=== PATIENT | female | born 1950 | race Caucasian/White ===

== ENCOUNTER 2017-04-26 23:03 | Observation (INO) | payer MEDICAID, OTHER ==
[~2017-04-26] VITALS: Ht 149.9 cm; Wt 62.1 kg
[2017-04-27] MEDS ORDERED: ONDANSETRON HCL 4MG/2ML VIAL IV ONE (00:30)
[2017-04-27] MEDS ORDERED: PANTOPRAZOLE SODIUM 40 MG/VIAL IV ONE (00:30)
[2017-04-27] MEDS ORDERED: FAMOTIDINE 20MG/2ML VIAL IV ONE (00:30)
[2017-04-27 00:55] LABS: BASOPHILS % 0.3 % (0.0-2.0); EOSINOPHILS % 0.3 % (0.0-5.0); HEMATOCRIT. 31.4 % (36.0-48.0); HEMOGLOBIN. 10.4 g/dL (12.0-16.0); LYMPHOCYTES % 18.3 % (20.0-50.0); MEAN CORPUSCULAR HEMOGLOBIN 28.4 pg (28.0-32.0); MEAN CORPUSCULAR VOLUME 85.5 fL (81.0-99.0); MEAN PLATELET VOLUME 9.2 fl (7.4-10.4); MONOCYTES % 5.2 % (2.0-8.0); NEUTROPHILS % 75.9 % (40.0-76.0); PLATELET 235 x1000/uL (130-400); RED BLOOD CELL COUNT 3.67 mill/uL (4.2-5.4)
[2017-04-27 00:58] LABS: CHLORIDE 108 mEq/L (98-107)
[2017-04-27 01:03] LABS: INR 1.1; PARTIAL THROMBOPLASTIN TIME 23.8 sec (24.0-34.0); PROTHROMBIN TIME 11.1 sec
[2017-04-27 01:07] LABS: CARBON DIOXIDE 28 mEq/L (21-32)
[2017-04-27 02:57] LABS: CLARITY URINE CLEAR (CLEAR); COLOR URINE YELLOW (YELLOW); GLUCOSE URINE NEGATIVE (NEGATIVE); KETONES URINE NEGATIVE (NEGATIVE); LEUKOCYTE ESTERASE URINE 1+ (NEGATIVE); NITRITE URINE NEGATIVE (NEGATIVE); OCCULT BLOOD URINE 2+ (NEGATIVE); PH URINE 7.5 (4.5-8.0); PROTEIN URINE NEGATIVE (NEGATIVE); SPECIFIC GRAVITY URINE 1.027 (1.005-1.030); UROBILINOGEN URINE 0.2 E.U./dL (0.2-1.0)
[2017-04-27] MEDS ORDERED: SODIUM CHLORIDE 0.9% 1,000 ML IV ONE (05:00)
[2017-04-27 09:00] VITALS: BP 89/55
[2017-04-27 09:05] VITALS: BP 94/50
[2017-04-27 09:30] VITALS: BP 103/69
[2017-04-27] MEDS ORDERED: CALC-36 PO (09:42)
[2017-04-27] MEDS ORDERED: ESCI10TA54 PO (09:42)
[2017-04-27] MEDS ORDERED: ANAS1TAB7 PO (09:42)
[2017-04-27] MEDS: DEXT 5%/0.45% NACL 500 ML IV SCH ×2 (10:49→17:16)
[2017-04-27 12:00] VITALS: BP 99/50
[2017-04-27 12:22] LABS: BASOPHILS % 1.1 % (0.0-2.0); EOSINOPHILS % 0.7 % (0.0-5.0); HEMATOCRIT. 25.9 % (36.0-48.0); HEMOGLOBIN. 8.5 g/dL (12.0-16.0); LYMPHOCYTES % 41.2 % (20.0-50.0); MEAN CORPUSCULAR HEMOGLOBIN 28.2 pg (28.0-32.0); MEAN CORPUSCULAR VOLUME 85.8 fL (81.0-99.0); MONOCYTES % 6.6 % (2.0-8.0); NEUTROPHILS % 50.4 % (40.0-76.0); PLATELET 210 x1000/uL (130-400); RED BLOOD CELL COUNT 3.02 mill/uL (4.2-5.4); RED CELL DISTRIBUTION WIDTH 14.1 % (11.6-14.6)
[2017-04-27] MEDS ORDERED: ONDANSETRON HCL 4MG/2ML VIAL IV PRN (13:30)
[2017-04-27] MEDS ORDERED: IPRATROPIUM/ALBUTEROL 0.5-3(2.5)MG/3ML NEB INH PRN (13:30)
[2017-04-27] MEDS ORDERED: ACETAMINOPHEN 325MG TABLET PO PRN (13:30)
[2017-04-27] MEDS ORDERED: CLONIDINE 0.1MG TABLET PO PRN (13:30)
[2017-04-27] MEDS ORDERED: SODIUM CHLORIDE 0.9% 10ML VIAL ONE (13:45)
[2017-04-27 14:01] LABS: CARBON DIOXIDE 27 mEq/L (21-32); CHLORIDE 110 mEq/L (98-107)
[2017-04-27] MEDS ORDERED: PANTOPRAZOLE SODIUM 40 MG/VIAL IV SCH (15:15)
[2017-04-27 16:00] VITALS: BP 95/46
[2017-04-27 17:05] LABS: BASOPHILS % 0.3 % (0.0-2.0); EOSINOPHILS % 0.8 % (0.0-5.0); HEMATOCRIT. 25.6 % (36.0-48.0); HEMOGLOBIN. 8.6 g/dL (12.0-16.0); LYMPHOCYTES % 43.4 % (20.0-50.0); MEAN CORPUSCULAR HEMOGLOBIN 28.8 pg (28.0-32.0); MEAN PLATELET VOLUME 8.9 fl (7.4-10.4); MONOCYTES % 6.8 % (2.0-8.0); NEUTROPHILS % 48.7 % (40.0-76.0); PLATELET 201 x1000/uL (130-400); RED BLOOD CELL COUNT 2.98 mill/uL (4.2-5.4); RED CELL DISTRIBUTION WIDTH 14.3 % (11.6-14.6)
[2017-04-27 20:00] VITALS: BP 88/41
[2017-04-27] MEDS: PANTOPRAZOLE SODIUM 40 MG/VIAL IV SCH (22:12)
[2017-04-28] VITALS (10 sets, daily range): BP systolic 88–121; BP diastolic 41–55
[2017-04-28] MEDS: DEXT 5%/0.45% NACL 500 ML IV SCH ×2 (01:09→09:58)
[2017-04-28 07:36] LABS: BASOPHILS % 0.7 % (0.0-2.0); EOSINOPHILS % 1.6 % (0.0-5.0); HEMOGLOBIN. 7.7 g/dL (12.0-16.0); MEAN CORPUSCULAR HEMOGLOBIN 28.8 pg (28.0-32.0); MEAN CORPUSCULAR VOLUME 86.1 fL (81.0-99.0); MEAN PLATELET VOLUME 9.2 fl (7.4-10.4); NEUTROPHILS % 47.7 % (40.0-76.0); PLATELET 173 x1000/uL (130-400); RED BLOOD CELL COUNT 2.67 mill/uL (4.2-5.4); RED CELL DISTRIBUTION WIDTH 14.3 % (11.6-14.6)
[2017-04-28 07:40] LABS: T4 FREE 1.02 ng/dL (0.76-1.46)
[2017-04-28 07:47] LABS: INR 1.1; PARTIAL THROMBOPLASTIN TIME 24.4 sec (24.0-34.0); PROTHROMBIN TIME 11.5 sec
[2017-04-28] MEDS: PANTOPRAZOLE SODIUM 40 MG/VIAL IV SCH ×2 (09:58→22:00)
[2017-04-28] MEDS ORDERED: FENTANYL CITRATE/PF 50MCG/ML 2ML VIAL IV PRN (13:53)
[2017-04-28] MEDS ORDERED: MIDAZOLAM HCL 5 MG/5 ML VIAL IV PRN (13:53)
[2017-04-28] MEDS ORDERED: MIDAZOLAM HCL 5 MG/5 ML VIAL ONE (13:54)
[2017-04-28] MEDS ORDERED: FENTANYL CITRATE/PF 50MCG/ML 2ML VIAL ONE (13:54)
[2017-04-28] MEDS ORDERED: SIMETHICONE 40 MG/0.6 ML 30ML ONE (13:54)
[2017-04-28] MEDS: DEXT 5%/0.45% NACL 1,000 ML IV SCH (22:05)
[2017-04-29] VITALS: BP 93/44
[2017-04-29 04:00] VITALS: BP 91/42
[2017-04-29 06:03] LABS: BASOPHILS % 0.6 % (0.0-2.0); EOSINOPHILS % 1.1 % (0.0-5.0); HEMATOCRIT. 27.3 % (36.0-48.0); HEMOGLOBIN. 9.1 g/dL (12.0-16.0); LYMPHOCYTES % 36.7 % (20.0-50.0); MEAN CORPUSCULAR VOLUME 86.9 fL (81.0-99.0); MEAN PLATELET VOLUME 9.2 fl (7.4-10.4); MONOCYTES % 6.5 % (2.0-8.0); NEUTROPHILS % 55.1 % (40.0-76.0); PLATELET 187 x1000/uL (130-400); RED BLOOD CELL COUNT 3.15 mill/uL (4.2-5.4); RED CELL DISTRIBUTION WIDTH 14.5 % (11.6-14.6)
[2017-04-29 07:43] LABS: CARBON DIOXIDE 27 mEq/L (21-32); CHLORIDE 109 mEq/L (98-107)
[2017-04-29 08:00] VITALS: BP 92/42
[2017-04-29] MEDS ORDERED: PANTOPRAZOLE 40MG DR TABLET PO SCH (08:00)
[2017-04-29] MEDS ORDERED: DOCUSATE SODIUM 250MG CAPSULE PO PRN (09:30)
[2017-04-29] MEDS ORDERED: HYDROCORTISONE 1% RECTAL CREAM 30GM PR PRN (09:30)
[2017-04-29] MEDS: DEXT 5%/0.45% NACL 1,000 ML IV SCH (10:42)
[2017-04-29 11:49] VITALS: BP 85/41
[2017-04-29 13:26] VITALS: BP 90/40
== END 2017-04-29 15:00 | disposition home or self-care (01) ==
LOC: ER 23:03 → INTOOBSV 04-27 03:24 → 7WST 04-27 03:24 → ENRESERV 04-27 07:00
PROVIDERS: ADMIT Internal Medicine; ATTEND Internal Medicine
DX: K92.2 Gastrointestinal hemorrhage, unspecified (principal); K92.0 Hematemesis; F03.90 Unspecified dementia, unspecified severity, without behavioral disturbance, psychotic disturbance, mood disturbance, and anxiety; K26.9 Duodenal ulcer, unspecified as acute or chronic, without hemorrhage or perforation; K59.00 Constipation, unspecified; D64.9 Anemia, unspecified; K29.70 Gastritis, unspecified, without bleeding; Z90.710 Acquired absence of both cervix and uterus; Z85.3 Personal history of malignant neoplasm of breast
CPT/HCPCS: 36415; 36430; 43239; 80048; 80053; 80061; 81001; 83690; 84439; 84443; 85025; 85610; 85730; 86677; 86850; 86900; 86901; 86920; 96361; 96374; 96375; 96376; 99285; A4216; C9113; G0378; J2250; J2405; J3010; J3490; J7030; J7040; J7050; P9016

== ENCOUNTER 2019-02-18 20:52 | Inpatient (IN) | payer MEDICARE, OTHER ==
[~2019-02-18] VITALS: Ht 144.8 cm; Wt 64.9 kg
[~2019-02-18 20:52] MED LIST: ANAS1TAB7 PO; CALC-36 PO; ESCI10TA54 PO; OCTREOTIDE 1,000 MCG in SODIUM CHLORIDE 0.9% 100 ML IV SCH
[2019-02-18] MEDS ORDERED: MEMA5TAB15 MT (22:08)
[2019-02-18] MEDS ORDERED: ONDANSETRON HCL 4MG/2ML INJ IV ONE (23:45)
[2019-02-18] MEDS ORDERED: CEFTRIAXONE 1 G PREMIX 50 ML IV ONE (23:45)
[2019-02-18] MEDS ORDERED: OCTREOTIDE 1,000 MCG in SODIUM CHLORIDE 0.9% 100 ML IV ONE (23:45)
[2019-02-18] MEDS ORDERED: PANTOPRAZOLE SODIUM 40 MG/VIAL IV ONE (23:45)
[2019-02-19] VITALS (11 sets, daily range): BP systolic 90–112; BP diastolic 36–64
[2019-02-19] MEDS ORDERED: OCTREOTIDE 1,000 MCG in SODIUM CHLORIDE 0.9% 100 ML IV SCH ×2
[2019-02-19 00:17] LABS: BASOPHILS % 0.4 % (0.0-2.0); EOSINOPHILS % 0.1 % (0.0-5.0); HEMOGLOBIN. 10.2 g/dL (12.0-16.0); LYMPHOCYTES % 21.2 % (20.0-50.0); MEAN CORPUSCULAR HEMOGLOBIN 28.2 pg (28.0-32.0); MEAN CORPUSCULAR VOLUME 85.9 fL (81.0-99.0); MEAN PLATELET VOLUME 8.7 fl (7.4-10.4); MONOCYTES % 4.8 % (2.0-8.0); NEUTROPHILS % 73.5 % (40.0-76.0); PLATELET 299 x1000/uL (130-400); RED BLOOD CELL COUNT 3.61 mill/uL (4.2-5.4); RED CELL DISTRIBUTION WIDTH 14.4 % (11.6-14.6)
[2019-02-19 00:24] LABS: CHLORIDE 105 mEq/L (98-107)
[2019-02-19 00:25] LABS: INR 1.1; PROTHROMBIN TIME 10.8 sec (9.6-11.0)
[2019-02-19 00:48] LABS: CLARITY URINE CLOUDY (CLEAR); COLOR URINE YELLOW (YELLOW); KETONES URINE TRACE (NEGATIVE); LEUKOCYTE ESTERASE URINE NEGATIVE (NEGATIVE); NITRITE URINE NEGATIVE (NEGATIVE); OCCULT BLOOD URINE 1+ (NEGATIVE); PROTEIN URINE TRACE (NEGATIVE); SPECIFIC GRAVITY URINE 1.028 (1.005-1.030); UROBILINOGEN URINE 0.2 E.U./dL (0.2-1.0)
[2019-02-19] MEDS: DEXT 5%/0.45% NACL KCL 20MEQ/L 1,000 ML IV SCH ×2 (05:29→16:02)
[2019-02-19 09:55] LABS: HEMATOCRIT 25.3 % (36.0-48.0); HEMOGLOBIN 8.4 g/dL (12.0-16.0)
[2019-02-19] MEDS: PANTOPRAZOLE SODIUM 40 MG/VIAL IV SCH ×2 (10:05→21:33)
[2019-02-19] MEDS ORDERED: ONDANSETRON HCL 4MG/2ML INJ IV PRN (12:15)
[2019-02-19] MEDS ORDERED: IPRATROPIUM/ALBUTEROL 0.5-3(2.5)MG/3ML NEB INH PRN (13:00)
[2019-02-19] MEDS ORDERED: ACETAMINOPHEN 325MG TABLET PO PRN (13:00)
[2019-02-19] MEDS ORDERED: MIDAZOLAM HCL 5 MG/5 ML VIAL ONE (15:25)
[2019-02-19] MEDS ORDERED: FENTANYL CITRATE/PF 50MCG/ML 2ML VIAL ONE (15:25)
[2019-02-19] MEDS ORDERED: SIMETHICONE 40 MG/0.6 ML 30ML ONE (15:27)
[2019-02-19] MEDS ORDERED: MIDAZOLAM HCL 5 MG/5 ML VIAL IV PRN (15:31)
[2019-02-19 18:34] LABS: HEMATOCRIT 26.6 % (36.0-48.0); HEMOGLOBIN 8.5 g/dL (12.0-16.0)
[2019-02-19] MEDS ORDERED: NON FORMULARY PATIENT HOME MED XX SCH (21:15)
[2019-02-19 21:56] LABS: HEMATOCRIT 23.7 % (36.0-48.0); HEMOGLOBIN 7.8 g/dL (12.0-16.0)
[2019-02-20] VITALS (22 sets, daily range): BP systolic 90–139; BP diastolic 41–75
[2019-02-20] MEDS: DEXT 5%/0.45% NACL KCL 20MEQ/L 1,000 ML IV SCH (06:39)
[2019-02-20] MEDS: OMEPRAZOLE 20MG CAPSULE EXTENDED RELEASE PO SCH ×2 (06:40→21:18)
[2019-02-20 07:38] LABS: HEMATOCRIT. 22.9 % (36.0-48.0); HEMOGLOBIN. 7.6 g/dL (12.0-16.0); MEAN CORPUSCULAR HEMOGLOBIN 28.7 pg (28.0-32.0); MEAN CORPUSCULAR VOLUME 86.4 fL (81.0-99.0); MEAN PLATELET VOLUME 9.1 fl (7.4-10.4); PLATELET 181 x1000/uL (130-400); RED BLOOD CELL COUNT 2.65 mill/uL (4.2-5.4); RED CELL DISTRIBUTION WIDTH 14.2 % (11.6-14.6)
[2019-02-20 07:41] LABS: CHLORIDE 108 mEq/L (98-107)
[2019-02-20 07:49] LABS: LDL CHOLESTEROL 80 mg/dL (5-100)
[2019-02-20 07:50] LABS: HDL CHOLESTEROL 37 mg/dL (40-59)
[2019-02-20] MEDS: PANTOPRAZOLE SODIUM 40 MG/VIAL IV SCH (08:38)
[2019-02-20 15:53] LABS: HEMATOCRIT 20.2 % (36.0-48.0); HEMOGLOBIN 6.6 g/dL (12.0-16.0)
[2019-02-20 17:43] LABS: PLATELET ESTIMATE NORMAL
[2019-02-20 20:44] LABS: HEMATOCRIT 28.4 % (36.0-48.0); HEMOGLOBIN 9.2 g/dL (12.0-16.0)
[2019-02-21] VITALS (7 sets, daily range): BP systolic 98–123; BP diastolic 38–63
[2019-02-21 07:05] LABS: HEMATOCRIT 27.8 % (36.0-48.0); HEMOGLOBIN 9.3 g/dL (12.0-16.0); MEAN CORPUSCULAR HEMOGLOBIN 28.4 pg (28.0-32.0); MEAN CORPUSCULAR VOLUME 84.9 fL (81.0-99.0); PLATELET 181 x1000/uL (130-400); RED BLOOD CELL COUNT 3.28 mill/uL (4.2-5.4); RED CELL DISTRIBUTION WIDTH 15.9 % (11.6-14.6)
[2019-02-21 07:11] LABS: CHLORIDE 107 mEq/L (98-107)
[2019-02-21] MEDS: OMEPRAZOLE 20MG CAPSULE EXTENDED RELEASE PO SCH (08:04)
[2019-02-21 13:09] LABS: HEMATOCRIT 27.4 % (36.0-48.0); HEMOGLOBIN 9.4 g/dL (12.0-16.0)
== END 2019-02-21 15:25 | disposition home or self-care (01) | DRG 241 ==
LOC: ER 20:52 → 5EST 02-19 01:45 → EDBEDREQTM 02-19 02:02 → EDBEDREQ 02-19 02:02 → ENRESERV 02-19 02:15
PROVIDERS: ADMIT Internal Medicine; ATTEND Internal Medicine
PROC: 0DB78ZX Excision of Stomach, Pylorus, Via Natural or Artificial Opening Endoscopic, Diagnostic (ICD-10-PCS; principal; 2019-02-19)
PROC: 30230N1 Transfusion of Nonautologous Red Blood Cells into Peripheral Vein, Open Approach (ICD-10-PCS; 2019-02-20)
DX: K26.4 Chronic or unspecified duodenal ulcer with hemorrhage (principal); C50.919 Malignant neoplasm of unspecified site of unspecified female breast; E86.0 Dehydration; D64.9 Anemia, unspecified; Z79.899 Other long term (current) drug therapy; K29.61 Other gastritis with bleeding; Z87.11 Personal history of peptic ulcer disease; Z90.49 Acquired absence of other specified parts of digestive tract; Z90.710 Acquired absence of both cervix and uterus
CPT/HCPCS: 36415; 71045; 80048; 80061; 83605; 84484; 85014; 85018; 85027; 86850; 86900; 86920; 93970; 96365; 96366; 96375; 99285; C1893; C9113; J0696; J2250; J2354; J2405; J3010; J7050; P9016